=== PATIENT | female | born 1945 | race Caucasian/White ===

== ENCOUNTER → 2017-05-09 | Outpatient (CLI) | payer MEDICARE ==
--- NOTE | 2017-05-10 12:38 | PCVCIMAG ---
APPROVED REPORT Exam: Stress Echocardiogram Indication: SVT, Hyperlipidemia Patient Location: Echo lab Stress Nurse: Alina French RN Status: routine Ht: 5 ft 7 in HR: 67 bpm BP: 130/70 mmHg Rhythm: NSR Procedure The patient underwent an Exercise Stress Test using the Mukund Protocol. Blood pressure, heart rate, and EKG were monitored. An Echocardiogram was performed by pharmacy technician assistant in four stages in quad fashion. At peak stress, four selected images were obtained and placed side by side with resting images for comparison. Stress Test Details Stress Test: Exercise stress testing was performed using a Mukund protocol. HR Resting HR: 67 bpmMax Heart Rate (APMHR): 150 bpm Max HR Achieved: 164 bpmTarget HR (85% APMHR): 127 bpm % of APMHR: 109 Recovery HR: 80 bpm HR response to stress: Normal HR response to stress BP Resting BP: 130/70 mmHg Max BP: 154/70 mmHg ECG Resting ECG: Sinus Rhythm Stress ECG: PVC"s ST Change: Non-ischemic Recovery ECG: Sinus Rhythm Clinical Reason for Termination: Maximal effort Exercise duration: 7 min 50 sec Highest Stage Achieved: Stage 2: 2.5 mph at 12% grade. Exercise capacity: 10.10 METs Angina Score: None Pre-Stress Echo The resting Echocardiogram showed normal left ventricular contractility with an estimated Ejection Fraction of about 55-60%. Normal wall motion in all segments on baseline images. Post-Stress Echo The stress Echocardiogram showed normalnormal left ventricular contractility with an estimated Ejection Fraction of about 60-65%. Normal augmentation of wall motion in all segments on post stress images. Clinical No clinical or ECG evidence for ischemia. Conclusion Clinical Response: Non-ischemic Exercise Capacity: Average Stress ECG Response: Non-ischemic Stress Echo Images: Non-ischemic No clinical, EKG or echocardiographic evidence for ischemia. No echocardiographic evidence for exercise induced ischemia. Normal stress echocardiogram with maximal exercise stress. Other Information Study Quality: Adequate <Conclusion> No clinical, EKG or echocardiographic evidence for ischemia. No echocardiographic evidence for exercise induced ischemia. Normal stress echocardiogram with maximal exercise stress.
== END | disposition home or self-care (01) ==
LOC: PCVCIMAG 15:06
PROVIDERS: ATTEND Internal Medicine Cardiovascular Disease
DX: I48.0 Paroxysmal atrial fibrillation (principal); I47.1 Supraventricular tachycardia; I10 Essential (primary) hypertension; I49.3 Ventricular premature depolarization; E78.00 Pure hypercholesterolemia, unspecified
CPT/HCPCS: 93325; 93351

== ENCOUNTER → 2018-06-06 | Outpatient (CLI) | payer MEDICARE | END | disposition home or self-care (01) | LOC: PCVCCLINIC 13:40 | PROVIDERS: ATTEND Internal Medicine Cardiovascular Disease | DX: I47.1 Supraventricular tachycardia (principal); I48.0 Paroxysmal atrial fibrillation; I10 Essential (primary) hypertension; E78.00 Pure hypercholesterolemia, unspecified | CPT/HCPCS: 80061; 93005; G0463 ==

== ENCOUNTER → 2019-03-09 | Outpatient (CLI) | payer MEDICARE | END | disposition home or self-care (01) | LOC: PCVCCLINIC 11:00 | PROVIDERS: ATTEND Internal Medicine Cardiovascular Disease | DX: R00.2 Palpitations (principal); E78.00 Pure hypercholesterolemia, unspecified; I47.1 Supraventricular tachycardia; I10 Essential (primary) hypertension; Z86.79 Personal history of other diseases of the circulatory system; Z88.2 Allergy status to sulfonamides | CPT/HCPCS: 93005; G0463 ==

== ENCOUNTER → 2019-04-16 | Outpatient (CLI) | payer MEDICARE ==
--- NOTE | 2019-04-16 16:55 | PCVCIMAG ---
APPROVED REPORT Study performed: 04/16/2019 13:55:02 EXAM: Comprehensive 2D, Doppler, and color-flow Echocardiogram Patient Location: Echo lab Status: routine BSA: 1.77 HR: 59 bpmBP: 118/80 mmHg Rhythm: NSR Other Information Study Quality: Good Risk Factors: Cardiac Risk Factors: Hyperlipidemia Indications CVA/TIA Atrial Fibrillation SVT ablation, 2D Dimensions IVSd: 7.99 (7-11mm)LVOT Diam: 21.79 (18-24mm) LVDd: 40.00 mm LVPWs: 0.56 mm PWd: 7.02 (7-11mm)Ascending Ao: 35.71 (22-36mm) LVDs: 26.86 (25-40mm) Left Atrium: 31.30 (27-40mm) Aortic Root: 29.84 mm LV Single Plane 4CH: 59.29 % LV Single Plane 2CH: 61.12 % Biplane EF: 58.2 % Volumes Left Atrial Volume (Systole) Single Plane 4CH: 32.30 mLSingle Plane 2CH: 35.40 mL LA ESV Index: 19.00 mL/m2 Aortic Valve AoV Peak Zia.: 1.62 m/s AO Peak Gr.: 10.52 mmHg Mitral Valve E/A Ratio: 1.4 MV Decel. Time: 224.63 ms MV E Max Zia.: 0.85 m/s MV A Zia.: 0.59 m/s TDI E/Lateral E': 12.14E/Medial E': 8.50 Medial E' Zia.: 0.10 m/s Lateral E' Zia.: 0.07 m/s Pulmonary Valve PV Peak Gr.: 2.55 mmHg Pulmonary Vein P Vein S: 0.61 m/sP Vein A: 0.30 m/s P Vein D: 0.40 m/sP Vein A Dur.: 100.3 msec P Vein S/D Ratio: 1.52 Tricuspid Valve TR Peak Zia.: 2.36 m/s TR Peak Gr.: 22.35 mmHg Left Ventricle The left ventricle is normal size. There is normal LV segmental wall motion. There is normal left ventricular wall thickness. Left ventricular systolic function is normal. The left ventricular ejection fraction is within the normal range. LVEF is 60-65%. The left ventricular diastolic function is normal. Right Ventricle The right ventricle is normal size. The right ventricular systolic function is normal. Atria The left atrium size is normal. The right atrium size is normal. Aortic Valve The aortic valve is normal in structure. Trace aortic regurgitation. There is no aortic valvular stenosis. Mitral Valve The mitral valve is normal in structure. Mild mitral regurgitation.. No evidence of mitral valve stenosis. Tricuspid Valve The tricuspid valve is normal in structure. Trace tricuspid regurgitation. Pulmonary artery pressure is 30mmHg. Pulmonic Valve The pulmonary valve is normal in structure. There is no pulmonic valvular regurgitation. Great Vessels The aortic root is normal in size. IVC is normal in size and collapses >50% with inspiration. Pericardium There is no pericardial effusion.
--- NOTE | 2019-04-27 16:50 | PCVCIMAG ---
APPROVED REPORT Patient Location: Echo lab Room #: Stress Nurse: Alina French RN Treadmill Stress Test: Indication: Palpitations, Hx of atrial fib. SVT ablation. The patient exercised according to the VIVIANA for 7:48 mins, achieving a work level of Max. METS:10.10. The resting heart rate of 57 bpm radha to a maximal heart rate of 155 bpm. This value represents 104% of the maximal, age predicted heart rate. The resting blood pressure of 118/80 mmHg, radha to a maximum blood pressure of 158/80 mmHg. The exercise stress test was stopped due to fatigue, target heart rate. Conclusion #1 patient stopped secondary to fatigue and shortness of breath no reproduction of chest pain or angina. #2 no diagnostic EKG changes consistent with ischemia no significant ectopy. #3 good exercise tolerance with an appropriate hemodynamic response. Impression negative treadmill stress test for ischemia or any significant dysrhythmia. Good exercise tolerance.
== END | disposition home or self-care (01) ==
LOC: PCVCIMAG 13:48
PROVIDERS: ATTEND Internal Medicine Cardiovascular Disease
DX: I47.1 Supraventricular tachycardia (principal); I48.0 Paroxysmal atrial fibrillation; I10 Essential (primary) hypertension; Z88.2 Allergy status to sulfonamides
CPT/HCPCS: 93017; 93306